=== PATIENT | male | born 1975 | race Caucasian/White ===

== ENCOUNTER 2023-03-05 06:28 | Emergency (ER) | payer BC ==
[~2023-03-05] VITALS: Ht 177.8 cm; Wt 93.4 kg
[2023-03-05 06:36] VITALS: BP_SYST 153; PULSE 102; RESP 20; TEMP 98.1; O2SAT 100
[2023-03-05] MEDS ORDERED: cefTRIAXone 1 GM VIAL IM ONE (07:00)
[2023-03-05] MEDS ORDERED: DEXAMETHASONE SOD PHOSPHATE 10 MG/ML VIAL IM ONE (07:00)
[2023-03-05] MEDS ORDERED: CEFU250T85 PO (07:02)
[2023-03-05] MEDS ORDERED: CETI10CA PO (07:02)
[2023-03-05] MEDS ORDERED: PRED50TA PO (07:02)
[2023-03-05 07:47] VITALS: BP_SYST 153; PULSE 91; RESP 12; TEMP 97.7; O2SAT 99
== END 2023-03-05 07:51 | disposition home or self-care (01) ==
LOC: SED 06:28
DX: K12.2 Cellulitis and abscess of mouth (principal); Z79.899 Other long term (current) drug therapy
CPT/HCPCS: 99284; 96372; J0696; J1100